=== PATIENT | female | born 1975 | race Caucasian/White ===

== ENCOUNTER → 2016-11-08 | Outpatient (CLI) | payer OTHER ==
[~2016-11-08] MED LIST: ADVOCARE PO; CATALYST PO; NUVVR VAGRING
--- NOTE | 2016-11-08 13:06 | MAMMOGRAPHY REPORT ---
BILATERAL DIGITAL DIAGNOSTIC MAMMOGRAM TOMOSYNTHESIS AND TARGETED BILATERAL ULTRASOUND: 11/08/2016 CLINICAL HISTORY: 40-year-old woman presents for follow-up targeted ultrasound in each breast to foll ow-up indeterminate solid versus cystic masses identified on prior whole breast screening ultrasound. Patient has a history of prior benign right breast stereotactic biopsy, ultrasound-guided core biop sy and a left breast core biopsy which yielded a papilloma that has subsequently been excised. It is also her first follow-up in the left breast after surgical excision. TECHNIQUE: Bilateral CC and MLO 2-D digital and tomosynthesis images, spot magnification right CC and ML views were obtained. COMPARISON: Comparison is made to exams dated: 04/11/2016 mammogram, 04/11/2016 localization, 2015 mammogram, 03/07/2016 ultrasound biopsy, 03/07/2016 ultrasound, and 02/16/2016 ultrasound - [facility]. BREAST COMPOSITION: The tissue of both breasts is extremely dense, which lowers the sensitivity of m ammography. FINDINGS: There is expected architectural distortion in the 9:00 middle to anterior left breast, at t he site of recent excisional biopsy. A linear scar marker overlies the 9:00 left breast. There are 2 stable metallic biopsy markers within the right breast. There are round and punctate microcavitati on scattered bilaterally. Stable partially circumscribed large masses in the right upper outer quadr ant. There are segmental punctate and amorphous microcalcifications in the 1132 12:00 middle to post erior right breast that are increasingly conspicuous compared to prior field mammograms. On the spot magnification views these do not appear significantly increased comparing back to 09/15/2015. Howev er, given the increased mammographic conspicuity on the current full-field views, these microcalcific ations remain indeterminate. Definitive characterization with tissue sampling is recommended. No ot her new suspicious mammographic mass, focal area of architectural distortion or microcavitation occas ions are seen bilaterally. Targeted ultrasound was performed in the 7:00 and 9:30 right breast and also in the 10:00 left breast to reevaluate the hypoechoic circumscribed masses as described on previous whole breast ultrasound. In the 7:00 right breast, 2 cm from the nipple, a circumscribed parallel hypoechoic mass is again id entified measuring 5.5 x 4.1 x 5.5 mm, previously measured 4.6 x 3.9 x 5.4 mm. The biopsied benign m ass in the 9:30 right breast, 12 cm from the nipple measures 7.1 x 3.8 x 8.8 mm previously measured 7 .0 x 4.8 x 9.4 mm. The 10:00 left breast mass, 1 cm from the nipple, measures 8.6 x 6.1 x 8.1 mm, pr eviously measured 8.1 x 6.2 x 8.8 mm. All of the above described masses have not significant changed and are most likely benign but another 6 month follow-up targeted ultrasound is read minded to ensur e longer stability. Additional sonographic evaluation was performed along each inframammary fold and areas of pain described by the patient. Sonographically normal tissue is seen without a discrete so lid or cystic mass. IMPRESSION: ACR BI-RADS CATEGORY 4: SUSPICIOUS, TARGETED ULTRASOUND ACR BI-RADS CATEGORY 4: SUSPICIO US 1. Right breast stereotactic guided biopsy is recommended for increasing segmental microcalcificatio ns in the 12:00 axis. 2. Pending benign pathology results, follow-up bilateral targeted ultrasound in the right 7:00, 9:30 and 10:00 axes is recommended to ensure longer stability of the circumscribed benign-appearing solid versus cystic masses. 3. At that time, bilateral complete breast ultrasound could also be performed for additional screeni ng, given the personal history of extremely dense breasts and multiple masses (30 minutes). These results and recommendations were discussed with the patient at the time of the exam. She will call our office to schedule the stereotactic biopsy when she has her schedule available. Approximately 10% of breast cancers are not detected with mammography. A negative mammographic report should not delay biopsy if a clinically suggestive mass is present. Poly Cage M.D. ay/:11/08/2016 12:39:31 Check Embosser: Debbie SETHI)(Fanny), [facility] letter sent: Abnormal 4/5 BI-RADS Code: ACR BI-RADS Category 4: Suspicious Ultrasound BI-RADS: ACR BI-RADS Category 4: Suspici ous
== END | disposition home or self-care (01) ==
LOC: C.MAMM 09:11
PROVIDERS: ATTEND Obstetrics & Gynecology
DX: Z09 Encounter for follow-up examination after completed treatment for conditions other than malignant neoplasm (principal); N63 Unspecified lump in breast; R92.0 Mammographic microcalcification found on diagnostic imaging of breast; R92.2 Inconclusive mammogram

== ENCOUNTER → 2017-01-24 | Outpatient (CLI) | payer OTHER ==
--- NOTE | 2017-01-24 10:43 | Discharge Instructions ---
Discharge Instructions Procedure Procedure Date: Jan 24, 2017. Reason for visit: Right Calcifications. Discharge Discharge Date: Jan 24, 2017. Discharge Diagnosis: post right breast stereotactic guided biopsy Instructions Activity Recommendations: Additional Limitations (see below) Return to School/Work: no limitations Recommended Home Diet: No Limitations Provider Instructions: ACTIVITY RECOMMENDATIONS: * No lifting, pushing, pulling or exercising the affected side for three days. RETURN TO SCHOOL/WORK: * You may return to work/school after the procedure, but do not perform any strenuous activities for 24 to 48 hours. MEDICATIONS: * Tylenol (two 325 mg) every four to six hours if needed for mild pain (if not allergic to Tylenol). DIET: * Resume previous diet. SPECIAL CARE INSTRUCTIONS: * Keep biopsy site dry for 24 hours. May shower after 24 hours, but do not soak (bathe) incision. * May remove Tegaderm (plastic patch) tomorrow AFTER showering. * Leave the steri-strips on for one week. Allow the steri-strips to fall off by themselves. If not off after one week, you may remove them. You may place a Bandaid crosswise over the strips, if desired. * Apply ice 10 minutes on and 10 minutes off as needed. * Wear a bra at bedtime to sleep more comfortably for 2-3 days. * Your referring physician should have the results after approximately 5 to 7 business days. * Call for unusual bleeding, fever, drainage, etc or if you have any questions call [phone] during normal business hours or after hours call Dr Cage, . FOLLOW UP VISIT: Follow-up with Referring Physician as scheduled. Allergies Coded Allergies: BEE STING (Verified Allergy, Severe, ANAPHYLAXIS, 04/11/16) Penicillins (Verified Allergy, Mild, UNKNOWN - HAPPENED CHILD, 04/11/16 ) Amoxicillin (Verified Allergy, Unknown, RASH, 04/11/16) Cefaclor (Verified Allergy, Unknown, RASH, 04/11/16) Clavulanic Acid (Verified Allergy, Unknown, RASH, 04/11/16) Latex1 -Allergic Contact Dermititis (Verified Allergy, Unknown, RASH/HIVES , 04/11/16) Rafita Salazar Recommendations: Call your doctor if: * Temperature above 101 degrees * Pain not relieved by pain medicine ordered * There is increased drainage or redness from any incision * You have any unanswered questions or concerns. Your Doctors Instructions noted above were prepared by provider Poly Cage. Patient Signature Section: Patient Instructions Signature Page Cornelia Adam Patient (or Guardian) Signature/Date: I have read and understand the instructions given to me by my caregivers. Caregiver/RN/Doctor Signature/Date: The above-named patient and/or guardian has received patient instructions on this date. + Original Patient Signature Page (only) stays with chart. Please make copy for patient.
--- NOTE | 2017-01-24 14:21 | MAMMOGRAPHY REPORT ---
ULTRASOUND OF BOTH BREASTS: 01/24/2017 CLINICAL HISTORY: 41-year-old woman presented for stereotactic guided biopsy of segmental microcalcif ications in the 12:00 right breast. Prior to the biopsy she reported new palpable lumps in each pee st. COMPARISON: Comparison is made to exams dated: 01/24/2017 mammogram, 01/24/2017 stereotactic biopsy, ultrasound, 11/08/2016 mammogram, 04/11/2016 mammogram, and 03/07/2016 mammogram - [facility]. FINDINGS: Targeted ultrasound was performed in the area of lumps pointed out by the patient. There are actually 2 lumps in the left breast, 12:00 and 1:00 axes, and one large lump in the 10:00 axis of the right breast. In the 1:00 left breast in the area of palpable concern pointed out by the patien t, 7 cm from the nipple, there is a large anechoic simple cyst with posterior acoustic enhancement, m easuring 2.0 x 1.2 x 2.5 cm. A smaller palpable cyst is identified in the 12:00 left breast, 2 cm fr om the nipple, measuring 1.3 x 0.6 x 1.3 cm. A third dominant cyst is seen in the area of palpable c oncern in the 10:00 right breast, 9 cm from the nipple, measuring 4.5 x 2.4 by approximately 5.0 cm. IMPRESSION: ACR BI-RADS CATEGORY 2: BENIGN - FOLLOW-UP RECOMMENDED The new palpable lumps in both breasts correlate with benign anechoic simple cysts on ultrasound. Th ere is no targeted sonographic evidence of malignancy. The patient is due for follow-up in both breasts as well as complete breast ultrasound in May 02 (30 minutes), to ensure stability of findings seen on the October 2016 exam. These results and recommendations were discussed with the patient at the time of the ultrasound. Poly Cage M.D. ay/:01/24/2017 13:46:56 Home Care Associate: Dr. Poly Cage, [facility] letter sent: Normal 1/2 BI-RADS Code: ACR BI-RADS Category 2: Benign
--- NOTE | 2017-01-24 14:21 | MAMMOGRAPHY REPORT ---
UNILATERAL RIGHT DIGITAL DIAGNOSTIC MAMMOGRAM: 01/24/2017 CLINICAL HISTORY: Status post stereotactic guided biopsy of segmental punctate microcalcifications in the 12:00 right breast. Please refer to the report from right breast stereotactic guided biopsy performed at the same time fo r full detail. IMPRESSION: POST PROCEDURE IMAGING FOR MARKER PLACEMENT Please refer to the report from right breast stereotactic guided biopsy performed at the same time fo r full detail. Approximately 10% of breast cancers are not detected with mammography. A negative mammographic report should not delay biopsy if a clinically suggestive mass is present. Poly Cage M.D. ay/:01/24/2017 10:40:13 Billing Auditor: Tamera Jimenez RT(R)(M), [facility] BI-RADS Code: Post Procedure Imaging For Marker Placement
--- NOTE | 2017-01-24 14:21 | MAMMOGRAPHY REPORT ---
STEREOTACTIC GUIDED BIOPSY RIGHT BREAST: 01/24/2017 CLINICAL HISTORY: Indeterminate increasing segmental punctate microcalcifications in the 12:00 right breast. Patient presented for stereotactic guided biopsy. COMPARISON: Comparison is made to exams dated: 11/08/2016 ultrasound, 11/08/2016 mammogram, 04/11/2016 mammogram, 04/11/2016 localization, 03/07/2016 mammogram, and 03/07/2016 ultrasound biopsy - [facility]. PATIENT CONSENT: After explaining the risks, benefits and alternatives of the procedure to the patien t, informed consent was obtained both verbally and in writing. Specific risks include: Bleeding, inf ection, puncture of adjacent structure, pain, nontarget biopsy, sampling error, metal allergy and med ication reaction. PROCEDURE DESCRIPTION: A time-out was performed and the right breast was confirmed as the site of bio psy. The patient was placed prone on the stereotactic biopsy table and the breast was placed in CC fr om above compression. A money market clerk image was obtained that demonstrated the clustered microcalcifications in question. They are amenable to sterotactic biopsy. Then +15 and -15 stereo pair images were obt ained. The calcifications were targeted utilizing the coordinates obtained by the computer. The skin was prepped with Betadine. 1% Lidocaine with and without epinipherine was administered as local anes thesia. A small skin incision was made. Through the incision, the needle was inserted to the depth d etermined by the computer. 6 samples were obtained using a [employer] 9-gauge vacuum-assisted biopsy device. The specimen radiograph demonstrated several parts sales representative microcalcifications, therefore, a metallic marker was placed at the biopsy site. There was no immediate complication. Hemostasis was achieved after several minutes of manual compression. The samples were sent to pathology in an appro priately labeled container. Postprocedure CC and ML views of the right breast were obtained. There is a small, 15 mm hematoma a t the site of the biopsy in the 12:00 middle one third of the right breast. The metallic biopsy dorothy er clip is not present and was likely expelled from the breast due to bleeding after the procedure. The decision was made not to place another biopsy marker clip in the site, given the numerous residua l punctate microcalcifications which remain in the 12:00 right breast. IMPRESSION: STEREOTACTIC GUIDED BIOPSY Status post stereotactic guided biopsy of segmental punctate microcalcifications in the 12:00 right b reast. A biopsy marker clip was placed at the site but expelled due to bleeding after the procedure. Pending benign pathology results, follow-up bilateral complete ultrasound (30 minutes) with particula r attention in both breasts is recommended to ensure stability of findings seen on the 11/08/2016 bong gnostic exam. The patient will receive notification of the biopsy results from her referring physician. Poly Cage M.D. ay/:01/24/2017 13:54:50 Lithographic Proofer Apprentice: Tamera RODRIGUEZ(R)(M), [facility]
== END | disposition home or self-care (01) ==
LOC: C.MAMM 09:19
PROVIDERS: ATTEND Obstetrics & Gynecology
DX: R92.0 Mammographic microcalcification found on diagnostic imaging of breast (principal)

== ENCOUNTER → 2017-06-11 | Outpatient (CLI) | payer OTHER ==
--- NOTE | 2017-06-12 14:40 | MAMMOGRAPHY REPORT ---
ASPIRATION RIGHT BREAST: 06/11/2017 CLINICAL HISTORY: Painful cyst in the right 10:00 breast. PATIENT CONSENT: The procedure and risks of ultrasound-guided cyst aspiration were discussed in full with the patient. Both oral and written consents were obtained. PROCEDURE DESCRIPTION: With ultrasound guidance, aseptic technique, and 1% lidocaine as a local anest hetic, aspiration was performed of the painful cyst in the right 10:00 breast. Approximately 33 mL o f benign type yellowbrown fluid fluid was obtained and discarded. Direct pressure was applied to th e site immediately post procedure and hemostasis was achieved. The patient tolerated the procedure w ithout complication. She was given wound care instructions. COMPARISON: Comparison is made to exams dated: 06/11/2017 ultrasound, 01/24/2017 ultrasound, 01/24/2017 mammogram, 11/08/2016 mammogram, 03/07/2016 mammogram, and 09/15/2015 mammogram - [facility]. IMPRESSION: ASPIRATION Ultrasound guided aspiration of the painful benign cyst in the right 10:00 breast. Approximately 33 cc of benign type fluid was aspirated and discarded. Roberta Ron M.D. ah/:06/11/2017 16:38:15 Attending Technologist: Tamera RODRIGUEZ(R)(M), [facility] Dining Room Busser: Roberta Ron MD, [facility]
--- NOTE | 2017-06-12 14:40 | MAMMOGRAPHY REPORT ---
ULTRASOUND OF BOTH BREASTS: 06/11/2017 CLINICAL HISTORY: The patient presents for follow-up of bilateral breast masses seen on ultrasound, a s well as for screening breast ultrasound given the history of dense breast and multiple masses. The patient has a known cyst in the right lateral breast which she feels has increased and is uncomforta ble. She also reports a possible new lump in the left breast. COMPARISON: Comparison is made to exams dated: 01/24/2017 ultrasound, 01/24/2017 mammogram, 11/08/2016 ultrasound, 11/08/2016 mammogram, 03/07/2016 ultrasound, and 02/16/2016 ultrasound - [facility]. TECHNIQUE: Real-time ultrasound of both breasts was performed. FINDINGS: Real-time, high-resolution was performed of bilateral breasts including all 4 quadrants an d subareolar regions. First, ultrasound was performed of the area of the palpable lump pointed out b y the patient, in the left 11:30 periareolar breast. At the site of the lump there is an oval circum scribed hypoechoic mass which measures 8 x 5 x 8 mm; this is stable dating back to the February 2016 e xam where the mass measured 9 x 8 x 6 mm (previously labeled left 10:00 breast, 1 cm from the nipple) . Given stability since February 2016, the mass is probably benign and may represent a complicated cy st versus fibroadenoma. Numerous anechoic benign cysts were seen throughout the left breast. No new or suspicious masses were seen within the left breast. Ultrasound of the right breast demonstrates an oval circumscribed hypoechoic 6 x 5 x 7 mm mass within the right breast at 7:00, 2 cm from the nipple. The mass is also not significantly changed dating b ack to the February 2016 exam and is probably benign and likely represents a complicated cyst. In the right breast at 9:30, 12 cm from the nipple, again noted is an oval circumscribed hypoechoic mass wh ich measures 6 x 9 x 4 mm. The mass is also not significantly changed dating back to the February exam and is probably benign and may represent a complicated cyst versus fibroadenoma. The remainde r of the right breast demonstrates multiple anechoic masses consistent with simple cysts. In the rig ht breast at 10:00, there is a large circumscribed anechoic mass, which is too large to measure on ul trasound but measures at least 3.9 x 3.0 x 3.9 cm. This is consistent with a benign simple cyst and corresponds with the uncomfortable increasing lump reported by the patient. Adjacent to that cyst is a smaller anechoic benign cyst measuring 2.3 cm x 1.4 cm at approximately 9:00. There are prominent bilateral axillary lymph nodes which do not appear significantly changed compared to the prior ultra sound exams, and appear prominent on all available prior mammograms dating back to at least 2013. IMPRESSION: ACR-BI-RADS CATEGORY 3: PROBABLY BENIGN - FOLLOW-UP RECOMMENDED 1. Circumscribed hypoechoic masses in the right 7:00 and 9:30 breast and left 11:30 breast are stabl e dating back to the February 2016 exam and are probably benign and may represent complicated cysts or fibroadenomas. Recommend repeat bilateral targeted ultrasound in 6 months to confirm longer stabili ty. Annual bilateral mammography will be due at that time. 2. The remainder of both breasts demonstrate multiple benign simple cysts on ultrasound, without son ographic evidence of malignancy. 3. The increasing painful lump in the right breast corresponds with a benign cyst on ultrasound that measures at least 3.9 cm. The patient desires aspiration for symptom relief. This was performed im mediately after the ultrasound exam. The patient was verbally notified of the results. Roberta Ron M.D. ah/:06/11/2017 16:35:05 Attending Technologist: Tamera RODRIGUEZ(R)(M), [facility] Cylinder Sander Operator: Roberta Ron MD, [facility] letter sent: Follow Up Recommended 3 BI-RADS Code: ACR-BI-RADS Category 3: Probably Benign
== END | disposition home or self-care (01) ==
LOC: C.MAMM 09:34
PROVIDERS: ATTEND Obstetrics & Gynecology
DX: N60.01 Solitary cyst of right breast (principal)

== ENCOUNTER → 2017-08-29 | Outpatient (CLI) | payer OTHER | END | disposition home or self-care (01) | LOC: C.PAPS 13:57 | PROVIDERS: ATTEND Obstetrics & Gynecology | DX: Z01.419 Encounter for gynecological examination (general) (routine) without abnormal findings (principal) ==